=== PATIENT | male | born 1940 | race Two or more races ===

== ENCOUNTER 2020-09-06 18:42 | Emergency (ER) | payer OTHER ==
[~2020-09-06] VITALS: Ht 175.3 cm; Wt 81.6 kg
[~2020-09-06 18:42] MED LIST: NO SE ACUERDA
[2020-09-06] MEDS ORDERED: ZOFRAN8 MG PO (21:44)
[2020-09-06] MEDS ORDERED: PEPCID AC20 MG PO (21:44)
== END 2020-09-06 21:50 | disposition home or self-care (01) ==
LOC: ER 18:42
DX: K52.9 Noninfective gastroenteritis and colitis, unspecified (principal)

== ENCOUNTER 2024-05-23 06:31 | Emergency (ER) | payer OTHER ==
[~2024-05-23] VITALS: Ht 182.9 cm; Wt 77.1 kg
[~2024-05-23 06:31] MED LIST changes: +ATORVASTATIN CA40 MG PO; +LOSARTAN POTASS50 MG PO; +METFORMIN HCL500 M4 PO; +PEPCID AC20 MG PO; +ZOFRAN8 MG PO
[2024-05-23 06:43] VITALS: BP 128/80; O2SAT 95
[2024-05-23] MEDS ORDERED: 0.9 % SODIUM CHLORIDE 1,000 ML IV STA (08:36)
[2024-05-23] MEDS ORDERED: KETOROLAC TROMETHAMINE 30 MG VIAL IV STA (08:37)
[2024-05-23] MEDS ORDERED: KETOROLAC TROMETHAMINE 60 MG VIAL IM ONE (08:41)
[2024-05-23 09:21] LABS: HEMATOCRIT 37.7 % (39.0-48.0); MEAN CELL VOLUME 88.7 fL (80.0-100.00); MEAN CORPUSCULAR HEMOGLOBIN 30.5 pg (27.00-32.0); MEAN CORPUSCULAR HGB CONC 34.4 g/dl (32.0-36.0); PLATELET COUNT 223 K/uL (150-450); RED BLOOD COUNT 4.25 M/uL (4.00-6.00); RED CELL DISTRIBUTION WIDTH 14.1 % (11.5-14.5)
[2024-05-23 12:02] LABS: ALBUMIN 3.2 gm/dL (3.4-5.0); BILIRUBIN TOTAL 0.53 mg/dL (0.3-1.2); BILIRUBIN,CONJUGATED 0.17 mg/dL (0.0-0.2); BILIRUBIN,UNCONJUGATED 0.36 mg/dL (0.0-0.6); CALCIUM 8.9 mg/dL (8.5-10.1); CREATININE SERUM 0.83 mg/dL (0.70-1.30); GFR 88.92; POTASSIUM 3.86 mEq/L (3.5-5.1); TOTAL PROTEIN 7.3 gm/dL (6.4-8.2)
== END 2024-05-23 14:49 | disposition home or self-care (01) ==
LOC: ER 06:31
PROVIDERS: General Practice
DX: R53.1 Weakness (principal); Z20.822 Contact with and (suspected) exposure to COVID-19; I10 Essential (primary) hypertension
CPT/HCPCS: 36415; 71045; 93005; 96365; 96366; 99283; J1885; J7030